=== PATIENT | male | born 1985 | race Two or more races ===

== ENCOUNTER 2019-06-10 18:45 | Emergency (ER) | payer SELFPAY ==
[~2019-06-10] VITALS: Ht 170.2 cm; Wt 85.8 kg
[2019-06-10 18:59] VITALS: BP 118/73
== END 2019-06-10 20:16 | disposition home or self-care (01) ==
LOC: ED 20:02
DX: K13.0 Diseases of lips (principal)
CPT/HCPCS: 99283